=== PATIENT | female | born 1970 | race Asian ===

== ENCOUNTER 2020-08-21 11:35 | Outpatient (CLI) | payer BC | END 2020-08-21 19:00 | disposition home or self-care (01) | LOC: CT 11:35 | PROVIDERS: ATTEND Nurse Practitioner Primary Care | DX: M54.5 Low back pain (principal); T14.90XA Injury, unspecified, initial encounter ==

== ENCOUNTER 2020-11-11 08:46 | Outpatient (CLI) | payer BC | END 2020-11-11 19:02 | disposition home or self-care (01) | LOC: CT 08:46 | PROVIDERS: ATTEND Internal Medicine Gastroenterology | DX: R10.30 Lower abdominal pain, unspecified (principal) | CPT/HCPCS: 36415; 82565; 84520; Q9963 ==